=== PATIENT | male | born 1960 | race Caucasian/White ===

== ENCOUNTER 2024-12-06 12:15 | Emergency (ER) | payer MEDICAID ==
[~2024-12-06] VITALS: Ht 177.8 cm; Wt 76.8 kg
[2024-12-06 12:16] VITALS: TEMP 98.4
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
[2024-12-06] MEDS: oxyCODONE IR 5mg (immed. release) tablet PO ONE (14:24)
[2024-12-06 15:07] VITALS: BP 121/77; PULSE 78; RESP 18; O2SAT 96
== END 2024-12-06 15:28 | disposition short-term general hospital (02) ==
LOC: ER 12:16
DX: M79.672 Pain in left foot (principal); R20.2 Paresthesia of skin
CPT/HCPCS: 99285